=== PATIENT | male | born 1955 | race Caucasian/White ===

== ENCOUNTER 2018-03-01 11:52 | Emergency (ER) | payer BC ==
[~2018-03-01] VITALS: Ht 177.8 cm; Wt 90.0 kg
[2018-03-01] MEDS ORDERED: ondansetron/PF 4mg/2ml inj IV ONE (12:15)
[2018-03-01] MEDS ORDERED: normal saline 1000ML IV soln IVB ONE ×2 (12:15→12:55)
[2018-03-01 12:30] LABS: BASOPHILS % (AUTO) 0.1 % (0-1); EOSINOPHILS # (AUTO) 0.5 X10'3 (0-0.9); EOSINOPHILS % (AUTO) 5.8 % (0-6); HEMATOCRIT 39.3 % (42.0-52.0); HEMOGLOBIN 13.6 g/dl (14.0-17.9); LYMPHOCYTES # (AUTO) 0.3 X10'3 (1.1-4.8); LYMPHOCYTES % (AUTO) 2.9 % (21-51); MEAN CORPUSCULAR HEMOGLOBIN 30.7 PG (27.0-31.0); MEAN CORPUSCULAR HGB CONC 34.5 % (33.0-36.5); MEAN PLATELET VOLUME 7.4 FL (7.4-10.4); MONOCYTES # (AUTO) 0.2 X10'3 (0-0.9); MONOCYTES % (AUTO) 2.1 % (2-12); NEUTROPHILS # (AUTO) 7.9 X10'3 (1.8-7.7); NEUTROPHILS % (AUTO) 89.1 % (42-75); PLATELET COUNT 179 X10'3 (140-440); RED BLOOD COUNT 4.42 X10'6 (4.70-6.10); RED CELL DISTRIBUTION WIDTH 12.2 % (11.5-14.5); WHITE BLOOD COUNT 8.9 X10'3 (4.5-11.0)
[2018-03-01 12:40] LABS: PROTHROMBIN TIME 10.4 SECONDS (9.0-12.0)
[2018-03-01 12:45] LABS: ALANINE AMINOTRANSFERASE 36 U/L (12-78); ALBUMIN 3.8 G/DL (3.4-5.0); ALKALINE PHOSPHATASE 80 IU/L (46-116); ANION GAP 11 (8-16); ASPARTATE AMINO TRANSFERASE 19 U/L (10-37); BLOOD UREA NITROGEN 24 MG/DL (7-18); BUN/CREATININE RATIO 20.3 (5.4-32.0); CALCIUM 9.1 MG/DL (8.5-10.1); CHLORIDE 98 MMOL/L (99-107); CREATININE 1.18 MG/DL (0.60-1.10); GLUCOSE 355 MG/DL (70-104); LIPASE 126 U/L (73-393); POTASSIUM 4.3 MMOL/L (3.5-5.1); SODIUM 137 MMOL/L (135-145); TOTAL PROTEIN 7.8 G/DL (6.4-8.2); eGFR 63 ML/MIN
[2018-03-01] MEDS ORDERED: ONDA4TAB12 PO (12:47)
[2018-03-01 12:55] LABS: CLARITY,URINE CLEAR (Clear); COLOR,URINE YELLOW (Yellow); GLUCOSE, URINE >=1000 mg/dl (Neg); KETONES,URINE 40 mg/dl (Neg); LEUKOCYTE ESTERASE ,URINE NEGATIVE (Neg); NITRITES, URINE NEGATIVE (Neg); OCCULT BLOOD,URINE NEGATIVE (Neg); PH,URINE 5.5 (4.8-8.0); PROTEIN,URINE NEGATIVE (Neg); UROBILINOGEN,URINE 0.2 E.U/dL (0.2-1.0)
[2018-03-01 13:08] LABS: UA COLLECTION TYPE CLN CATCH MIDSTREAM
[2018-03-01 13:09] LABS: BACTERIA,URINE NONE SEEN /HPF (Neg); MUCUS STRANDS NONE SEEN /LPF (Neg); RBC,URINE 0-2 /HPF (0-2); SQUAMOUS EPITHELIAL CELL,UR FEW /LPF (FEW); WBC,URINE 0-4 /HPF (0-4)
[2018-03-01 13:49] VITALS: BP 117/65
== END 2018-03-01 13:51 | disposition home or self-care (01) ==
LOC: ER 11:52
DX: R11.2 Nausea with vomiting, unspecified (principal); R10.84 Generalized abdominal pain; I10 Essential (primary) hypertension; E11.9 Type 2 diabetes mellitus without complications; G89.29 Other chronic pain; Z79.4 Long term (current) use of insulin
CPT/HCPCS: 36415; 80053; 81001; 83690; 85025; 85610; 96361; 96374; 99285; J2405; J7030

== ENCOUNTER 2018-12-23 19:00 | Inpatient (IN) | payer BC ==
[~2018-12-23] VITALS: Ht 175.3 cm; Wt 82.7 kg
[~2018-12-23 19:00] MED LIST: ONDA4TAB12 PO
[2018-12-23 20:32] LABS: BASOPHILS % (AUTO) 0.4 % (0-1); EOSINOPHILS # (AUTO) 0.2 X10'3 (0-0.9); HEMATOCRIT 39.8 % (42.0-52.0); HEMOGLOBIN 13.6 g/dl (14.0-17.9); LYMPHOCYTES # (AUTO) 1.5 X10'3 (1.1-4.8); LYMPHOCYTES % (AUTO) 24.3 % (21-51); MEAN CORPUSCULAR HEMOGLOBIN 31.1 PG (27.0-31.0); MEAN CORPUSCULAR HGB CONC 34.1 % (33.0-36.5); MEAN CORPUSCULAR VOLUME 91.1 FL (78-98); MEAN PLATELET VOLUME 8.2 FL (7.4-10.4); MONOCYTES # (AUTO) 0.4 X10'3 (0-0.9); MONOCYTES % (AUTO) 7.4 % (2-12); NEUTROPHILS # (AUTO) 3.9 X10'3 (1.8-7.7); NEUTROPHILS % (AUTO) 64.9 % (42-75); PLATELET COUNT 188 X10'3 (140-440); RED BLOOD COUNT 4.37 X10'6 (4.70-6.10); RED CELL DISTRIBUTION WIDTH 12.2 % (11.5-14.5)
[2018-12-23 20:48] LABS: ALANINE AMINOTRANSFERASE 31 U/L (12-78); ALBUMIN 3.7 G/DL (3.4-5.0); ALKALINE PHOSPHATASE 84 IU/L (46-116); ANION GAP 10 (8-16); ASPARTATE AMINO TRANSFERASE 19 U/L (10-37); BILIRUBIN,TOTAL 0.3 MG/DL (0.1-1.0); BLOOD UREA NITROGEN 21 MG/DL (7-18); BUN/CREATININE RATIO 17.6 (5.4-32.0); CALCIUM 9.1 MG/DL (8.5-10.1); CHLORIDE 103 MMOL/L (99-107); CREATININE 1.19 MG/DL (0.60-1.10); GLUCOSE 206 MG/DL (70-104); POTASSIUM 3.8 MMOL/L (3.5-5.1); SODIUM 141 MMOL/L (135-145); TOTAL CARBON DIOXIDE 27.7 MMOL/L (24-32); TOTAL PROTEIN 7.4 G/DL (6.4-8.2); eGFR 62 ML/MIN
--- NOTE | 2018-12-23 20:50 | NUR ---
pt sitting up in bed with at his bedside. waiting on lab results.
[2018-12-23 21:01] LABS: C-REACTIVE PROTEIN 0.68 MG/DL (0.0-0.5)
[2018-12-23] MEDS ORDERED: MORP15TA60 PO (21:57)
[2018-12-23] MEDS ORDERED: OXYC-134 PO (21:57)
[2018-12-23] MEDS ORDERED: QUIN1TAB25 PO (21:57)
[2018-12-23] MEDS ORDERED: GABA-532 PO (21:57)
[2018-12-23] MEDS ORDERED: MAGN200T PO (21:57)
[2018-12-23] MEDS ORDERED: CALC600T12 PO (21:57)
[2018-12-23] MEDS ORDERED: POTA99TA6 PO (21:57)
[2018-12-23] MEDS ORDERED: BACL20TA PO (21:57)
[2018-12-23] MEDS ORDERED: LANTUS SQ (21:57)
[2018-12-23] MEDS ORDERED: INSU100C10 SQ (21:57)
[2018-12-23] MEDS ORDERED: LIDO700A32 TOP (22:06)
--- NOTE | 2018-12-23 22:11 | NUR ---
pt up to the bathroom, ambulating without difficulties. awaiting final lab results and hospitalist. updated on plan of care
--- NOTE | 2018-12-23 23:11 | NUR ---
hospitalist at bedside assessing pt
--- NOTE | 2018-12-23 23:30 | NUR ---
per Dr. Garcia, pt ok to have something to eat. [place] sandwich and unsweetened applesauce provided.
[2018-12-23] MEDS ORDERED: vancomycin/NS 1 GM ADD-VANTAGE 250 ML IV ONE (23:35)
[2018-12-23] MEDS ORDERED: potassium Cl 40MEQ/NS 500ml 500 ML IV PRN ×2 (23:40)
[2018-12-23] MEDS ORDERED: glucagon, human recombinant 1mg kit SUBCUT PRN (23:40)
[2018-12-23] MEDS ORDERED: acetaminophen 325mg tablet PO PRN (23:40)
[2018-12-23] MEDS ORDERED: ondansetron/PF 4mg/2ml inj IV PRN (23:40)
[2018-12-23] MEDS ORDERED: magnesium 4gm in 100ml NS 100 ML IV PRN (23:40)
[2018-12-23] MEDS ORDERED: morphine 4 MG/ML inj SYRINge IV PRN ×2 (23:40)
[2018-12-23] MEDS ORDERED: potassium Cl 20 mEq SR tablet PO PRN ×2 (23:40)
[2018-12-23] MEDS ORDERED: mag hydrox/Alum hydrox/simeth 30ml oral suspension PO PRN (23:40)
[2018-12-23] MEDS ORDERED: magnesium hydroxide 30ml (MOM) UD suspension PO PRN (23:40)
[2018-12-23] MEDS ORDERED: dextrose ORAL solution 15 GM/59 ML bottle PO PRN ×2 (23:40)
[2018-12-23] MEDS ORDERED: dextrose 50%-water 50ml dispensing syringe IV PRN ×2 (23:40)
[2018-12-23] MEDS ORDERED: magnesium 2GM in 50ml NS 50 ML IV PRN (23:40)
[2018-12-23] MEDS ORDERED: MESSAGE TO PHARMACY PO ONE (23:40)
[2018-12-24] MEDS: cefepime 2g/NS 100ml ADVANTAGE 100 ML IV SCH ×3 (00:06→19:59)
[2018-12-24] MEDS: oxyCODONE/APAP 5-325mg tablet PO SCH ×4 (00:17→23:56)
[2018-12-24] MEDS: normal saline 1000ml 1,000 ML IV SCH ×3 (00:19→19:38)
[2018-12-24 00:34] LABS: ALANINE AMINOTRANSFERASE 29 U/L (12-78); ALBUMIN 3.6 G/DL (3.4-5.0); ALKALINE PHOSPHATASE 76 IU/L (46-116); ANION GAP 9 (8-16); ASPARTATE AMINO TRANSFERASE 18 U/L (10-37); BILIRUBIN,TOTAL 0.3 MG/DL (0.1-1.0); BLOOD UREA NITROGEN 22 MG/DL (7-18); BUN/CREATININE RATIO 21.4 (5.4-32.0); CALCIUM 8.9 MG/DL (8.5-10.1); CHLORIDE 104 MMOL/L (99-107); CHOL/HDL RATIO 2.2 (0.00-4.99); CHOLESTEROL 94 MG/DL (0-200); CREATININE 1.03 MG/DL (0.60-1.10); GLUCOSE 214 MG/DL (70-104); HDL CHOLESTEROL 42 MG/DL (35-60); LDL CHOLESTEROL 54 MG/DL (50-100); MAGNESIUM 2.2 MG/DL (1.5-2.4); SODIUM 140 MMOL/L (135-145); TOTAL CARBON DIOXIDE 26.8 MMOL/L (24-32); TOTAL PROTEIN 7.3 G/DL (6.4-8.2); TRIGLYCERIDES 57 MG/DL (20-135); eGFR 73 ML/MIN
--- NOTE | 2018-12-24 00:34 | NUR ---
Per Dr Garcia, ok to administered pt's 0200 gabapentin now.
[2018-12-24 00:35] LABS: BASOPHILS % (AUTO) 0.8 % (0-1); EOSINOPHILS # (AUTO) 0.2 X10'3 (0-0.9); HEMATOCRIT 40.4 % (42.0-52.0); HEMOGLOBIN 13.2 g/dl (14.0-17.9); LYMPHOCYTES # (AUTO) 1.7 X10'3 (1.1-4.8); LYMPHOCYTES % (AUTO) 28.6 % (21-51); MEAN CORPUSCULAR HEMOGLOBIN 30.2 PG (27.0-31.0); MEAN CORPUSCULAR HGB CONC 32.8 % (33.0-36.5); MEAN CORPUSCULAR VOLUME 92.2 FL (78-98); MEAN PLATELET VOLUME 8.3 FL (7.4-10.4); MONOCYTES # (AUTO) 0.4 X10'3 (0-0.9); MONOCYTES % (AUTO) 6.8 % (2-12); NEUTROPHILS # (AUTO) 3.7 X10'3 (1.8-7.7); NEUTROPHILS % (AUTO) 59.8 % (42-75); PLATELET COUNT 198 X10'3 (140-440); RED BLOOD COUNT 4.38 X10'6 (4.70-6.10); RED CELL DISTRIBUTION WIDTH 11.2 % (11.5-14.5)
[2018-12-24] MEDS ORDERED: gabapentin 300mg capsule PO ONE ×2 (00:40)
[2018-12-24 01:05] VITALS: BP 136/70
--- NOTE | 2018-12-24 01:30 | NUR ---
found iv infiltrated. restarted 2nd attempt. pt tolerated well. admission completed. up to BR with IV pole. steady on feet. call light in reach. no new needs identified.
[2018-12-24] MEDS: gabapentin 300mg capsule PO SCH ×4 (02:00→19:47)
--- NOTE | 2018-12-24 02:14 | NUR ---
pt states he has 6 stairs to get into his house and a flight of stairs to get to his bedroom. he can stay on main floor of house after discharge.
--- NOTE | 2018-12-24 02:16 | NUR ---
pt has glucose monitor on upper right bicep but NO insulin pump. will begin glycemic protocol when medication available.
[2018-12-24] MEDS: insulin glargine (Lantus) pen - multi-dose SQ SCH ×2 (02:54→21:36)
--- NOTE | 2018-12-24 02:54 | NUR ---
PER PTS AUTOMATIC ACCUCHECK ON ARM IT WAS 232.
--- NOTE | 2018-12-24 05:42 | NUR ---
reported to days. noted pt needs MRI questionnaire filled out - attached to chart. noted vascular studies ordered for today.
[2018-12-24 07:07] VITALS: BP 107/37
[2018-12-24] MEDS: K and/or MAG REPLACEMENT MC SCH (08:00)
[2018-12-24] MEDS: enoxaparin 40mg/0.4ml syringe SQ SCH (08:09)
[2018-12-24] MEDS: calcium carbonate 500mg tablet PO SCH (08:10)
[2018-12-24] MEDS: baclofen 10mg tablet PO SCH ×3 (08:10→21:39)
[2018-12-24] MEDS: lisinopril 20mg tablet PO SCH (08:10)
[2018-12-24] MEDS: HYDROchlorothiazide 12.5mg capsule PO SCH (08:10)
[2018-12-24] MEDS: vancomycin inj 1,250 MG in normal saline 250ml IV soln 250 ML IV SCH ×2 (08:11→21:38)
[2018-12-24] MEDS: insulin Lispro (HumaLOG) vial - multi-dose SQ SCH ×3 (08:35→19:46)
[2018-12-24 10:00] VITALS: BP 137/56
[2018-12-24] MEDS ORDERED: pneumococcal 23-VAL P-sac vacc 25 mcg/0.5ml vial IMVAC ONE (10:00)
--- NOTE | 2018-12-24 12:04 | NUR ---
DM Consult: Pt admit w/ R foot diabetic ulcer, cellulitis, and possible osteomyelitis per MD note. Hx T1DM 30 years A1C 8.1 and lately not had regular podiatry visits per MD note. Pt at MRI at time of RD visit. Written/verbal DM and high protein eds w/ RD contact information left at bedside. RD d/w RN for MVM for wound healing per MD approval. PO 100% current heart healthy/carb controlled diet meeting needs. Will continue to monitor. Rec: 1. continue heart healthy/carb controlled diet per MD 2. monitor for ONS needs 3. MVM for wound healing per MD approval 4. wt per rx Addendum: 12/24/18 at [address] Amended: Links added.
[2018-12-24] MEDS: morphine ER 15mg tablet PO SCH (13:34)
[2018-12-24 18:00] VITALS: BP 102/51
[2018-12-24] MEDS: lactobacillus rhamnosus 10,000 MMU CELLS/CAPSULE PO SCH (19:47)
[2018-12-24] MEDS ORDERED: insulin glargine (Lantus) pen - multi-dose SQ SCH ×2 (21:00)
[2018-12-24 22:22] VITALS: BP 94/45
--- NOTE | 2018-12-25 01:09 | NUR ---
pt has implanted glucose monitor attached to digital display around his neck. using for [employer] numbers.
[2018-12-25] MEDS: gabapentin 300mg capsule PO SCH ×4 (02:00→20:55)
[2018-12-25 06:00] VITALS: BP 112/61
[2018-12-25] MEDS: normal saline 1000ml 1,000 ML IV SCH ×2 (06:00→15:38)
[2018-12-25 06:02] LABS: BASOPHILS % (AUTO) 0.3 % (0-1); EOSINOPHILS # (AUTO) 0.2 X10'3 (0-0.9); EOSINOPHILS % (AUTO) 3.1 % (0-6); HEMATOCRIT 38.8 % (42.0-52.0); HEMOGLOBIN 13.2 g/dl (14.0-17.9); LYMPHOCYTES # (AUTO) 1.2 X10'3 (1.1-4.8); LYMPHOCYTES % (AUTO) 15.5 % (21-51); MEAN CORPUSCULAR HEMOGLOBIN 30.7 PG (27.0-31.0); MEAN CORPUSCULAR VOLUME 90.2 FL (78-98); MEAN PLATELET VOLUME 7.9 FL (7.4-10.4); MONOCYTES # (AUTO) 0.4 X10'3 (0-0.9); MONOCYTES % (AUTO) 5.8 % (2-12); NEUTROPHILS # (AUTO) 5.6 X10'3 (1.8-7.7); NEUTROPHILS % (AUTO) 75.3 % (42-75); PLATELET COUNT 163 X10'3 (140-440); RED CELL DISTRIBUTION WIDTH 12.6 % (11.5-14.5); WHITE BLOOD COUNT 7.4 X10'3 (4.5-11.0)
[2018-12-25 06:16] LABS: ALANINE AMINOTRANSFERASE 25 U/L (12-78); ALBUMIN 3.2 G/DL (3.4-5.0); ALKALINE PHOSPHATASE 59 IU/L (46-116); ANION GAP 9 (8-16); ASPARTATE AMINO TRANSFERASE 19 U/L (10-37); BILIRUBIN,TOTAL 0.4 MG/DL (0.1-1.0); BLOOD UREA NITROGEN 22 MG/DL (7-18); BUN/CREATININE RATIO 26.2 (5.4-32.0); CALCIUM 8.9 MG/DL (8.5-10.1); CHLORIDE 107 MMOL/L (99-107); CREATININE 0.84 MG/DL (0.60-1.10); GLUCOSE 156 MG/DL (70-104); SODIUM 142 MMOL/L (135-145); TOTAL PROTEIN 6.5 G/DL (6.4-8.2); eGFR > 90 ML/MIN
--- NOTE | 2018-12-25 06:20 | NUR ---
Patient in room ORTHO 4009. I have received report from Ollie and had the opportunity to ask questions and assume patient care.
--- NOTE | 2018-12-25 06:40 | NUR ---
reported to days. noted pt has new dressing on toe.
[2018-12-25] MEDS: K and/or MAG REPLACEMENT MC SCH (08:00)
[2018-12-25] MEDS: cefepime 2g/NS 100ml ADVANTAGE 100 ML IV SCH ×2 (08:01→20:55)
[2018-12-25] MEDS: lactobacillus rhamnosus 10,000 MMU CELLS/CAPSULE PO SCH ×2 (08:01→20:55)
[2018-12-25] MEDS: baclofen 10mg tablet PO SCH ×3 (08:02→21:50)
[2018-12-25] MEDS: calcium carbonate 500mg tablet PO SCH (08:05)
[2018-12-25] MEDS: HYDROchlorothiazide 12.5mg capsule PO SCH (08:05)
[2018-12-25] MEDS: oxyCODONE/APAP 5-325mg tablet PO SCH ×2 (08:06→16:34)
[2018-12-25] MEDS: lisinopril 20mg tablet PO SCH (08:07)
[2018-12-25] MEDS: enoxaparin 40mg/0.4ml syringe SQ SCH (08:08)
[2018-12-25] MEDS: vancomycin inj 1,250 MG in normal saline 250ml IV soln 250 ML IV SCH ×2 (09:05→21:57)
[2018-12-25] MEDS: insulin Lispro (HumaLOG) vial - multi-dose SQ SCH ×3 (09:09→19:15)
[2018-12-25 10:00] VITALS: BP 118/52
[2018-12-25] MEDS: morphine ER 15mg tablet PO SCH (12:21)
[2018-12-25 18:00] VITALS: BP 124/59
--- NOTE | 2018-12-25 18:17 | NUR ---
Problems reprioritized. Patient report given, questions answered & plan of care reviewed with Christie.
[2018-12-25] MEDS ORDERED: VANCOMYCIN LEVEL IV NR (20:30)
[2018-12-25] MEDS: insulin glargine (Lantus) pen - multi-dose SQ SCH (21:40)
[2018-12-25 22:00] VITALS: BP 125/61
[2018-12-26] MEDS: oxyCODONE/APAP 5-325mg tablet PO SCH ×4 (00:05→23:46)
[2018-12-26] MEDS: normal saline 1000ml 1,000 ML IV SCH ×2 (01:38→11:56)
[2018-12-26] MEDS: gabapentin 300mg capsule PO SCH ×4 (05:03→20:08)
[2018-12-26 05:33] LABS: BASOPHILS % (AUTO) 0.7 % (0-1); EOSINOPHILS # (AUTO) 0.3 X10'3 (0-0.9); EOSINOPHILS % (AUTO) 5.2 % (0-6); HEMATOCRIT 36.1 % (42.0-52.0); HEMOGLOBIN 12.4 g/dl (14.0-17.9); LYMPHOCYTES # (AUTO) 1.5 X10'3 (1.1-4.8); LYMPHOCYTES % (AUTO) 29.7 % (21-51); MEAN CORPUSCULAR HEMOGLOBIN 30.7 PG (27.0-31.0); MEAN CORPUSCULAR HGB CONC 34.3 g/dL (33.0-36.5); MEAN CORPUSCULAR VOLUME 89.6 FL (78-98); MEAN PLATELET VOLUME 7.9 FL (7.4-10.4); MONOCYTES # (AUTO) 0.4 X10'3 (0-0.9); MONOCYTES % (AUTO) 7.8 % (2-12); NEUTROPHILS # (AUTO) 2.9 X10'3 (1.8-7.7); NEUTROPHILS % (AUTO) 56.6 % (42-75); PLATELET COUNT 153 X10'3 (140-440); RED BLOOD COUNT 4.04 X10'6 (4.70-6.10); RED CELL DISTRIBUTION WIDTH 12.3 % (11.5-14.5); WHITE BLOOD COUNT 5.1 X10'3 (4.5-11.0)
[2018-12-26 05:52] LABS: ALANINE AMINOTRANSFERASE 27 U/L (12-78); ALKALINE PHOSPHATASE 48 IU/L (46-116); ANION GAP 7 (8-16); ASPARTATE AMINO TRANSFERASE 17 U/L (10-37); BILIRUBIN,TOTAL 0.4 MG/DL (0.1-1.0); BLOOD UREA NITROGEN 21 MG/DL (7-18); BUN/CREATININE RATIO 26.3 (5.4-32.0); CALCIUM 8.6 MG/DL (8.5-10.1); CHLORIDE 110 MMOL/L (99-107); GLUCOSE 125 MG/DL (70-104); MAGNESIUM 1.9 MG/DL (1.5-2.4); POTASSIUM 3.7 MMOL/L (3.5-5.1); SODIUM 144 MMOL/L (135-145); TOTAL PROTEIN 6.1 G/DL (6.4-8.2); eGFR > 90 ML/MIN
[2018-12-26 06:00] VITALS: BP 117/59
--- NOTE | 2018-12-26 06:15 | NUR ---
Patient in room ORTHO 4009. I have received report from Christie STEVENS and had the opportunity to ask questions and assume patient care.
[2018-12-26] MEDS: HYDROchlorothiazide 12.5mg capsule PO SCH (07:29)
[2018-12-26] MEDS: baclofen 10mg tablet PO SCH ×3 (07:29→20:08)
[2018-12-26] MEDS: lactobacillus rhamnosus 10,000 MMU CELLS/CAPSULE PO SCH ×2 (07:29→20:08)
[2018-12-26] MEDS: calcium carbonate 500mg tablet PO SCH (07:29)
[2018-12-26] MEDS: cefepime 2g/NS 100ml ADVANTAGE 100 ML IV SCH ×2 (07:29→20:09)
[2018-12-26] MEDS: lisinopril 20mg tablet PO SCH (07:33)
[2018-12-26] MEDS: enoxaparin 40mg/0.4ml syringe SQ SCH (07:34)
[2018-12-26] MEDS: K and/or MAG REPLACEMENT MC SCH (08:00)
[2018-12-26] MEDS: insulin Lispro (HumaLOG) vial - multi-dose SQ SCH ×3 (08:58→19:21)
[2018-12-26 10:00] VITALS: BP 105/50
[2018-12-26] MEDS: morphine ER 15mg tablet PO SCH (11:55)
[2018-12-26 18:00] VITALS: BP 122/68
--- NOTE | 2018-12-26 18:10 | NUR ---
Problems reprioritized. Patient report given, questions answered & plan of care reviewed with Vivienne STEVENS.
--- NOTE | 2018-12-26 18:15 | NUR ---
Patient in room ORTHO 4009. I have received report from RODNEY Tadeo and had the opportunity to ask questions and assume patient care.
--- NOTE | 2018-12-26 21:00 | NUR ---
Pt. blood sugar for 2100 is 181.
[2018-12-26] MEDS: insulin glargine (Lantus) pen - multi-dose SQ SCH (21:19)
[2018-12-26 22:00] VITALS: BP 108/52
[2018-12-27] MEDS: gabapentin 300mg capsule PO SCH ×3 (02:10→16:57)
[2018-12-27 05:18] LABS: BASOPHILS % (AUTO) 0.9 % (0-1); EOSINOPHILS # (AUTO) 0.3 X10'3 (0-0.9); EOSINOPHILS % (AUTO) 5.1 % (0-6); HEMATOCRIT 34.1 % (42.0-52.0); HEMOGLOBIN 11.7 g/dl (14.0-17.9); LYMPHOCYTES # (AUTO) 1.3 X10'3 (1.1-4.8); LYMPHOCYTES % (AUTO) 25.4 % (21-51); MEAN CORPUSCULAR HEMOGLOBIN 30.9 PG (27.0-31.0); MEAN CORPUSCULAR HGB CONC 34.3 g/dL (33.0-36.5); MEAN PLATELET VOLUME 8.4 FL (7.4-10.4); MONOCYTES # (AUTO) 0.4 X10'3 (0-0.9); MONOCYTES % (AUTO) 8.1 % (2-12); NEUTROPHILS % (AUTO) 60.5 % (42-75); PLATELET COUNT 139 X10'3 (140-440); RED BLOOD COUNT 3.79 X10'6 (4.70-6.10); RED CELL DISTRIBUTION WIDTH 12.1 % (11.5-14.5)
[2018-12-27 05:19] LABS: ALANINE AMINOTRANSFERASE 39 U/L (12-78); ALBUMIN 2.9 G/DL (3.4-5.0); ALBUMIN/GLOBULIN RATIO 0.9 (1.1-1.5); ALKALINE PHOSPHATASE 51 IU/L (46-116); ANION GAP 6 (8-16); ASPARTATE AMINO TRANSFERASE 30 U/L (10-37); BILIRUBIN,TOTAL 0.4 MG/DL (0.1-1.0); BLOOD UREA NITROGEN 20 MG/DL (7-18); BUN/CREATININE RATIO 23.8 (5.4-32.0); CALCIUM 8.4 MG/DL (8.5-10.1); CHLORIDE 108 MMOL/L (99-107); CREATININE 0.84 MG/DL (0.60-1.10); GLUCOSE 144 MG/DL (70-104); MAGNESIUM 1.9 MG/DL (1.5-2.4); POTASSIUM 3.8 MMOL/L (3.5-5.1); SODIUM 142 MMOL/L (135-145); TOTAL CARBON DIOXIDE 28.1 MMOL/L (24-32); eGFR > 90 ML/MIN
[2018-12-27 06:00] VITALS: BP 102/53
--- NOTE | 2018-12-27 06:10 | NUR ---
Patient in room ORTHO 4009. I have received report from Vivienne STEVENS and had the opportunity to ask questions and assume patient care.
--- NOTE | 2018-12-27 06:17 | NUR ---
Problems reprioritized. Patient report given, questions answered & plan of care reviewed with RODNEY Tadeo.
[2018-12-27] MEDS: calcium carbonate 500mg tablet PO SCH (07:17)
[2018-12-27] MEDS: baclofen 10mg tablet PO SCH ×2 (07:17→12:51)
[2018-12-27] MEDS: oxyCODONE/APAP 5-325mg tablet PO SCH ×2 (07:17→16:56)
[2018-12-27] MEDS: lactobacillus rhamnosus 10,000 MMU CELLS/CAPSULE PO SCH (07:17)
[2018-12-27] MEDS: cefepime 2g/NS 100ml ADVANTAGE 100 ML IV SCH (07:17)
[2018-12-27] MEDS: enoxaparin 40mg/0.4ml syringe SQ SCH (07:18)
[2018-12-27] MEDS: lisinopril 20mg tablet PO SCH (07:22)
[2018-12-27] MEDS: HYDROchlorothiazide 12.5mg capsule PO SCH (07:23)
[2018-12-27] MEDS: K and/or MAG REPLACEMENT MC SCH (08:00)
[2018-12-27] MEDS ORDERED: gadopentetate dimeglumine 7.5 MMOL/15 ML syringe ONE (09:00)
[2018-12-27] MEDS: insulin Lispro (HumaLOG) vial - multi-dose SQ SCH ×2 (09:08→14:01)
[2018-12-27 10:00] VITALS: BP 103/55
[2018-12-27] MEDS ORDERED: piperacillin/tazo 3.375gm/50ml 50 ML IV ONE (12:35)
[2018-12-27] MEDS: morphine ER 15mg tablet PO SCH (12:51)
--- NOTE | 2018-12-27 15:20 | NUR ---
reassessment: Pt PO 100% meals meeting needs. LBM 12/26. No nutrition concerns at this time. Rec: 1. continue heart healthy/carb controlled diet per MD 2. monitor for ONS needs 3. MVM for wound healing per MD approval 4. wt per rx Addendum: 12/27/18 at [address] Amended: Links added.
[2018-12-27] MEDS ORDERED: pneumococcal 23-VAL P-sac vacc 25 mcg/0.5ml vial IMVAC ONE (17:05)
[2018-12-27] MEDS ORDERED: gadopentetate dimeglumine 7.5 MMOL/15 ML syringe IV ONE (17:19)
--- NOTE | 2018-12-27 17:20 | NUR ---
Patient stable for discharge home today. All instructions given to patient and , all questions answered. All belongings sent with patient.
[2018-12-27] MEDS ORDERED: VANCOMYCIN LEVEL IV ONE (20:30)
== END 2018-12-27 17:20 | disposition home or self-care (01) | DRG 638 ==
LOC: ER 19:00 → ED HOLD 23:38 → ORTHO 4S 12-24 01:00
PROVIDERS: ADMIT Family Medicine; ATTEND Internal Medicine
PROC: 3E0234Z Introduction of Serum, Toxoid and Vaccine into Muscle, Percutaneous Approach (ICD-10-PCS; principal; 2018-12-27)
DX: E10.621 Type 1 diabetes mellitus with foot ulcer (principal); L03.115 Cellulitis of right lower limb; M86.8X7 Other osteomyelitis, ankle and foot; E10.319 Type 1 diabetes mellitus with unspecified diabetic retinopathy without macular edema; E10.42 Type 1 diabetes mellitus with diabetic polyneuropathy; E10.628 Type 1 diabetes mellitus with other skin complications; I10 Essential (primary) hypertension; E10.69 Type 1 diabetes mellitus with other specified complication; L84 Corns and callosities; L97.509 Non-pressure chronic ulcer of other part of unspecified foot with unspecified severity; M41.9 Scoliosis, unspecified; Z79.4 Long term (current) use of insulin; Z79.899 Other long term (current) drug therapy; Z83.3 Family history of diabetes mellitus; Z87.891 Personal history of nicotine dependence; Z23 Encounter for immunization
CPT/HCPCS: 36415; 36573; 73660; 73723; 76937; 80053; 80061; 80202; 82948; 83036; 83605; 83735; 84145; 85025; 85651; 86140; 87040; 87070; 90732; 93925; 93971; 99285; A9579; G0378; J0692; J1650; J1815; J2543; J3370; J7030

== ENCOUNTER 2019-12-26 13:23 | Emergency (ER) | payer BC ==
[~2019-12-26] VITALS: Ht 175.3 cm; Wt 94.0 kg
[~2019-12-26 13:23] MED LIST changes: +BACL20TA PO; +CALC600T12 PO; +GABA-532 PO; +INSU100C10 SQ; +LANTUS SQ; +LIDO700A32 TOP; +MAGN200T PO; +MORP15TA60 PO; -ONDA4TAB12 PO; +OXYC-134 PO; +POTA99TA6 PO; +QUIN1TAB25 PO
[2019-12-26 13:35] VITALS: BP 144/77
[2019-12-26] MEDS ORDERED: PRED10TA23 PO (14:13)
[2019-12-26] MEDS ORDERED: ketorolac trometh inj. 60 MG/2 ML VIAL IM ONE (14:15)
== END 2019-12-26 14:35 | disposition home or self-care (01) ==
LOC: ER 13:24
DX: M79.602 Pain in left arm (principal); E11.42 Type 2 diabetes mellitus with diabetic polyneuropathy; I10 Essential (primary) hypertension; G89.29 Other chronic pain; Z98.890 Other specified postprocedural states; Z88.8 Allergy status to other drugs, medicaments and biological substances; Z79.4 Long term (current) use of insulin; Z79.899 Other long term (current) drug therapy
CPT/HCPCS: 93005; 96372; 99283; J1885

== ENCOUNTER 2021-10-01 05:47 | Emergency (ER) | payer MEDICARE, BC ==
[~2021-10-01] VITALS: Ht 177.8 cm; Wt 90.9 kg
[~2021-10-01 05:47] MED LIST changes: -CALC600T12 PO; +CALC600T35 PO; +QUIN1TAB16 PO; -QUIN1TAB25 PO
[2021-10-01 05:59] VITALS: BP 154/69
[2021-10-01 06:24] LABS: BASOPHILS % (AUTO) 0.3 % (0-1); EOSINOPHILS # (AUTO) 0.1 X10'3 (0-0.9); EOSINOPHILS % (AUTO) 0.7 % (0-6); HEMATOCRIT 31.7 % (42.0-52.0); LYMPHOCYTES # (AUTO) 0.5 X10'3 (1.1-4.8); LYMPHOCYTES % (AUTO) 6.6 % (21-51); MEAN CORPUSCULAR HEMOGLOBIN 31.7 PG (27.0-31.0); MEAN CORPUSCULAR HGB CONC 34.5 g/dL (33.0-36.5); MEAN CORPUSCULAR VOLUME 91.9 FL (78-98); MEAN PLATELET VOLUME 7.3 FL (7.4-10.4); MONOCYTES # (AUTO) 0.7 X10'3 (0-0.9); NEUTROPHILS # (AUTO) 6.4 X10'3 (1.8-7.7); NEUTROPHILS % (AUTO) 83.4 % (42-75); PLATELET COUNT 152 X10'3 (140-440); RED BLOOD COUNT 3.45 X10'6 (4.70-6.10); RED CELL DISTRIBUTION WIDTH 13.1 % (11.5-14.5); WHITE BLOOD COUNT 7.6 X10'3 (4.5-11.0)
[2021-10-01] MEDS ORDERED: ondansetron/PF 4mg/2ml inj IV ONE (06:25)
[2021-10-01] MEDS ORDERED: acetaminophen 325mg tablet PO ONE (06:25)
[2021-10-01] MEDS ORDERED: morphine 4 MG/ML inj SYRINge IV ONE (06:25)
[2021-10-01] MEDS ORDERED: gabapentin 300mg capsule PO ONE (06:25)
[2021-10-01] MEDS ORDERED: ketorolac trometh. 30mg/ml inj. IV ONE (06:25)
[2021-10-01 06:48] LABS: ALANINE AMINOTRANSFERASE 42 U/L (12-78); ALBUMIN 3.8 G/DL (3.4-5.0); ALBUMIN/GLOBULIN RATIO 0.9 (1.1-1.5); ALKALINE PHOSPHATASE 77 IU/L (46-116); ANION GAP 6 (8-16); ASPARTATE AMINO TRANSFERASE 34 U/L (10-37); BILIRUBIN,TOTAL 0.5 MG/DL (0.1-1.0); BLOOD UREA NITROGEN 31 MG/DL (7-18); BUN/CREATININE RATIO 26.7 (5.4-32.0); CALCIUM 9.2 MG/DL (8.5-10.1); CHLORIDE 102 MMOL/L (99-107); CREATININE 1.16 MG/DL (0.60-1.10); GLUCOSE 171 MG/DL (70-104); POTASSIUM 4.6 MMOL/L (3.5-5.1); SODIUM 137 MMOL/L (135-145); TOTAL CARBON DIOXIDE 29.3 MMOL/L (24-32); TOTAL PROTEIN 7.9 G/DL (6.4-8.2); eGFR 63 ML/MIN
[2021-10-01] MEDS ORDERED: HYDR-3965 PO (07:29)
[2021-10-01] MEDS ORDERED: HYDROcodone/acetaminophen 5mg/325mg tablet PO ONE (07:30)
[2021-10-02] MEDS ORDERED: OXYC1TAB17 PO (02:25)
[2021-10-02] MEDS ORDERED: FLO0.4C PO (02:30)
[2021-10-02] MEDS ORDERED: BACL10TA2 PO (02:30)
[2021-10-02] MEDS ORDERED: FURO20TA4 PO (02:31)
[2021-10-02] MEDS ORDERED: GABA600T13 PO (03:12)
== END 2021-10-01 08:42 | disposition home or self-care (01) ==
LOC: ER 05:48
DX: M79.605 Pain in left leg (principal); M79.604 Pain in right leg; M79.671 Pain in right foot; I10 Essential (primary) hypertension; E11.9 Type 2 diabetes mellitus without complications; G89.29 Other chronic pain; Z98.890 Other specified postprocedural states; Z88.8 Allergy status to other drugs, medicaments and biological substances; Z79.4 Long term (current) use of insulin; Z79.899 Other long term (current) drug therapy
CPT/HCPCS: 36415; 80053; 85025; 93971; 96374; 96375; 99284; J1885; J2270; J2405